=== PATIENT | male | born 1985 | race Caucasian/White ===

== ENCOUNTER 2018-01-03 07:27 | Emergency (ER) | payer OTHER ==
[2018-01-03 07:33] VITALS: RESP 16
--- NOTE | 2018-01-03 07:41 | CPEKG ---
Heart Rate: 106 RR Interval: 566 P-R Interval: 120 QRSD Interval: 84 QT Interval: 324 QTC Interval: 431 P [place]: 44 QRS [place]: 21 T Wave [place]: 32 EKG Severity - OTHERWISE NORMAL ECG - EKG Impression: SINUS TACHYCARDIA Electronically Signed By: Ramon Zuñiga 03-Jan-2018 08:11:16
--- NOTE | 2018-01-03 07:56 | EDPHY ---
H & P Stated Complaint: Substernal chest and back pain since 01/02/18 Time Seen by Provider: 01/03/18 07:49 HPI/ROS: CHIEF COMPLAINT: Chest pain HISTORY OF PRESENT ILLNESS: The patient presents to the ED with a 1 day history of chest pain. The patient's symptoms reportedly began at 3 o'clock in the afternoon yesterday. He complains of an anterior chest pain and associated dyspnea. The pain does radiate to his neck. He has had associated fatigue. The patient reportedly went to sleep and had chest pain all night which is still present however improved. He has no prior history of the symptoms. He denies history of fever, cough or congestion. The patient did recently moved to [place] from [place]. There is a pleuritic component to his chest pain. He denies asymmetric calf pain or swelling. REVIEW OF SYSTEMS: A comprehensive 10 point review of systems is otherwise negative aside from elements mentioned in the history of present illness. Source: Patient Exam Limitations: No limitations - Personal History Current Tetanus Diphtheria and Acellular Pertussis (TDAP): Yes - Medical/Surgical History Hx Asthma: No Hx Chronic Respiratory Disease: No Hx Diabetes: No Hx Cardiac Disease: No Hx Renal Disease: No Hx Cirrhosis: No Hx Alcoholism: No Hx HIV/AIDS: No Hx Splenectomy or Spleen Trauma: No Other PMH: Denies - Social History Smoking Status: Never smoked - Physical Exam Exam: General Appearance: Alert, no distress Eyes: Pupils equal and round no pallor or injection ENT, Mouth: Mucous membranes moist Respiratory: There are no retractions, lungs are clear to auscultation Cardiovascular: Tachycardic Gastrointestinal: Abdomen is soft and nontender, no masses, bowel sounds normal Neurological: A&O, normal motor function, normal sensory exam, normal cranial nerves Skin: Warm and dry, no rashes Musculoskeletal: Neck is supple nontender Extremities: symmetrical, full range of motion Constitutional: Initial Vital Signs Temperature (C) 36.4 C 01/03/18 07:28 Heart Rate 116 H 01/03/18 07:28 Respiratory Rate 16 01/03/18 07:28 Blood Pressure 109/89 H 01/03/18 07:28 O2 Sat (%) 94 01/03/18 07:28 O2 Delivery Mode Room Air Allergies/Adverse Reactions: No Known Allergies Allergy (Unverified 01/03/18 07:33) Home Medications: Medication Instructions Recorded Adderall 10 mg Tablet 01/03/18 Medical Decision Making - Diagnostics EKG Interpretation: EKG: Complete interpretation has been separately recorded in the [employer] archive. Summary impression: Sinus tachycardia, rate 106 Imaging Results: Imaging Impressions Chest X-Ray 01/03/18 07:55 Impression: No acute pulmonary disease. ED Course/Re-evaluation: The patient presents to the ED with a 1 day history of anterior chest pain and mild dyspnea. The patient has no risk factors for thromboembolic disease. The patient's D-dimer is negative and he is low risk by Wells criteria. I feel this adequately excludes pulmonary embolism. The patient's chest x-ray demonstrates no evidence of cardiomegaly, pneumothorax or pneumonia. The patient has no evidence of a critical anemia, elevated troponin or gastrointestinal abnormality. I re-evaluated the patient at 9:20 a.m. He reports his chest pain has completely resolved. At this point time I favor a likely diagnosis of pleurisy. The patient has been instructed to use ibuprofen as needed for management of his symptoms. He should return to the ED for markedly worsening symptoms or other concerns. Differential Diagnosis: Differential diagnosis considered includes pulmonary embolism, pneumothorax, arrhythmia, pericarditis, pancreatitis, pneumonia - Data Points Laboratory Results: Laboratory Results 01/03/18 07:43 01/03/18 07:43 01/03/18 01/03/18 01/03/18 07:43 07:43 07:43 WBC 10.86 10^3/uL H 10^3/uL (3.80-9.50) RBC 5.16 10^6/uL 10^6/uL (4.40-6.38) Hgb 16.5 g/dL g/dL (13.7-17.5) Hct 46.1 % % (40.0-51.0) MCV 89.3 fL fL (81.5-99.8) MCH 32.0 pg pg (27.9-34.1) MCHC 35.8 g/dL g/dL (32.4-36.7) RDW 12.1 % % (11.5-15.2) Plt Count 284 10^3/uL 10^3/uL (150-400) MPV 10.5 fL fL (8.7-11.7) Neut % (Auto) 70.6 % % (39.3-74.2) Lymph % (Auto) 20.5 % % (15.0-45.0) [place] % (Auto) 7.3 % % (4.5-13.0) Eos % (Auto) 0.8 % % (0.6-7.6) Baso % (Auto) 0.3 % % (0.3-1.7) Nucleat RBC Rel Count 0.0 % % (0.0-0.2) Absolute Neuts (auto) 7.67 10^3/uL H 10^3/uL (1.70-6.50) Absolute Lymphs (auto) 2.23 10^3/uL 10^3/uL (1.00-3.00) Absolute Monos (auto) 0.79 10^3/uL 10^3/uL (0.30-0.80) Absolute Eos (auto) 0.09 10^3/uL 10^3/uL (0.03-0.40) Absolute Basos (auto) 0.03 10^3/uL 10^3/uL (0.02-0.10) Absolute Nucleated RBC 0.00 10^3/uL 10^3/uL (0-0.01) Immature Gran % 0.5 % % (0.0-1.1) Immature Gran # 0.05 10^3/uL 10^3/uL (0.00-0.10) D-Dimer < 0.27 ug/mLFEU ug/mLFEU (0.00-0.50) Sodium 140 mEq/L mEq/L (135-145) Potassium 4.6 mEq/L mEq/L (3.5-5.2) Chloride 101 mEq/L mEq/L (97-110) Carbon Dioxide 24 mEq/l mEq/l (22-31) Anion Gap 15 mEq/L mEq/L (8-16) BUN 17 mg/dL mg/dL (7-23) Creatinine 1.1 mg/dL mg/dL (0.7-1.3) Estimated GFR > 60 Glucose 93 mg/dL mg/dL (70-100) Calcium 10.0 mg/dL mg/dL (8.5-10.4) Total Bilirubin 1.3 mg/dL mg/dL (0.1-1.4) Conjugated Bilirubin 0.5 mg/dL mg/dL (0.0-0.5) Unconjugated Bilirubin 0.8 mg/dL mg/dL (0.0-1.1) AST 21 IU/L IU/L (17-59) ALT 34 IU/L IU/L (21-72) Alkaline Phosphatase 61 IU/L IU/L (38-126) Troponin I < 0.012 ng/mL ng/mL (0.000-0.034) Total Protein 7.7 g/dL g/dL (6.3-8.2) Albumin 4.8 g/dL g/dL (3.5-5.0) Lipase 112 IU/L IU/L (23-300) Medications Given: Discontinued Medications Ketorolac Tromethamine (Toradol) 30 mg IVP EDNOW ONE Stop: 01/03/18 08:45 Last Admin: 01/03/18 08:51 Dose: 30 mg Departure - Departure Disposition: Home, Routine, Self-Care Clinical Impression: Chest pain Condition: Good Instructions: Chest Pain (ED) Additional Instructions: 1. Take Ibuprofen or Motrin 600 mg by mouth three times a day. 2. Please schedule a follow-up appointment with the physician you have been referred to for any ongoing pain. 3. Please return to the ED for markedly worsening pain, difficulty breathing or other concerns. 3. The workup in the emergency department today is unrevealing. There is no evidence of a obvious heart or lung problem as an explanation of your symptoms. Referrals: Freddy Lennon DO [Doctor of Osteopathy] - As per Instructions
[2018-01-03 08:27] LABS: PLATELET COUNT 284 10^3/uL (150-400)
[2018-01-03] MEDS ORDERED: KETOROLAC 30 MG/1 ML SDV IVP ONE (08:44)
[2018-01-03 08:53] VITALS: O2SAT 95
[2018-01-03 09:51] VITALS: BP 132/96; PULSE 103; TEMP 97.9
== END 2018-01-03 09:51 | disposition home or self-care (01) ==
DX: R07.9 Chest pain, unspecified (principal)
CPT/HCPCS: 96374; J1885